=== PATIENT | female | born 1975 | race Caucasian/White ===

== ENCOUNTER 2021-12-26 08:53 | Outpatient (CLI) | payer BC, SELFPAY ==
[2021-12-26 13:45] LABS: Albumin* 3.6 g/dL (3.3-5.0); Chloride* 99 mmol/L (96-114); Potassium* 4.2 mmol/L (3.6-5.1); Sodium* 135 mmol/L (135-149)
[2021-12-26 13:47] LABS: Cholesterol* 220 mg/dL (90-199)
[2021-12-26 13:48] LABS: Alanine Aminotransferase* 20 U/L (4-35); Alkaline Phosphatase* 155 U/L (40-150); Aspartate Amino Transferase* 28 U/L (12-35); Bilirubin Total* 0.3 mg/dL (0.1-1.5); Blood Urea Nitrogen* 8 mg/dL (5-24); Calcium* 8.8 mg/dL (8.4-10.6); Carbon Dioxide* 30 mmol/L (20-32); Creatinine* 0.6 mg/dL (0.5-1.5); Estimated Glomerular Filt Rate 113 ml/min; Glucose* 94 mg/dL (60-115); Total Protein* 6.8 g/dL (6.0-8.3); Triglycerides* 111 mg/dL (40-149)
[2021-12-26 14:13] LABS: HDL Cholesterol* 124 mg/dL (>=50); LDL Cholesterol Calculated 74 mg/dL (<100)
[2021-12-27 15:10] LABS: HIV 1/2/P24 Combo Screen* Negative (Negative)
[2021-12-27 15:18] LABS: Hepatitis C Virus Antibody* Negative (Negative)
[2022-01-06 17:03] LABS: Sex Hormone Binding Globulin 325 nmol/L (25-122); Testosterone, LC-MS/MS 36 ng/dL (9-55)
[2022-01-21 17:39] LABS: Estradiol by TMS 212.2 pg/mL
== END 2021-12-26 08:54 | disposition home or self-care (01) ==
PROVIDERS: PCP Family Medicine; Visit Provider Physician Assistant Medical
DX: Z00.00 Encounter for general adult medical examination without abnormal findings (principal); L68.9 Hypertrichosis, unspecified; E03.9 Hypothyroidism, unspecified; G89.29 Other chronic pain; M54.2 Cervicalgia; Z13.6 Encounter for screening for cardiovascular disorders; Z11.3 Encounter for screening for infections with a predominantly sexual mode of transmission
CPT/HCPCS: 80053; 80061; 82670; 84270; 84402; 84403; 84443; 86701; 86703; 86803